=== PATIENT | female | born 1945 | race Caucasian/White ===

== ENCOUNTER → 2023-09-19 07:36 | Outpatient (REF) | payer MEDICARE, SELFPAY ==
[2023-09-19 10:05] LABS: % Basophils 0.5 % (0-2); % Eosinophils 2.8 % (0-6); % Immature Granulocytes 0.4 % (0-0.5); % Lymphocytes 20.2 % (20.5-51.1); % Monocytes 10.7 % (1.7-9.3); % Neutrophils 65.4 % (42.2-75.2); Absolute Eosinophils 0.2 10^3/uL (0-0.7); Absolute Lymphocytes 1.6 10^3/uL (1.2-3.4); Absolute Monocytes 0.8 10^3/uL (0.1-0.6); Absolute Neutrophils 5.1 10^3/uL (1.4-6.5); Hematocrit 44.5 % (37.0-47.0); Hemoglobin 14.6 g/dL (12.0-16.0); Mean Corp Hgb Conc. 32.8 g/dL (33.0-37.0); Mean Corpuscular Hgb 29.3 pg (27.0-31.0); Mean Corpuscular Volume 89.4 fL (81.0-99.0); Mean Platelet Volume 9.7 fL (7.4-10.4); Nucleated Red Blood Cells % 0 %; Platelet Count 297 10^3/uL (130-400); Red Blood Cell Count 4.98 10^6/uL (4.20-5.40); Red Cell Dist. Width 12.9 % (11.5-14.5); White Blood Cell Count 7.9 10^3/uL (4.8-10.8)
[2023-09-19 10:48] LABS: HDL Cholesterol 87 mg/dl; LDL Cholesterol, Calculated 37 mg/dl; Total Cholesterol 152 mg/dl (50-199); Triglyceride 142 mg/dl (10-149); Very Low Density Lipoprotein 28 mg/dl (0-30)
[2023-09-19 11:13] LABS: TSH Reflex To Free T4 2.38 uIU/ml (0.47-4.68)
== END ==
LOC: HWLAB 07:36
PROVIDERS: ATTENDING PHYSICIAN Internal Medicine; FAMILY PHYSICIAN Family Medicine; REFERRING PHYSICIAN Internal Medicine Interventional Cardiology
DX: E78.00 Pure hypercholesterolemia, unspecified (principal); I10 Essential (primary) hypertension
CPT/HCPCS: 36415; 80061; 84443; 85025

== ENCOUNTER → 2023-11-03 07:52 | Outpatient (REF) | payer MEDICARE, SELFPAY | LOC: HWWDC 07:52 | PROVIDERS: ATTENDING PHYSICIAN Internal Medicine | DX: Z12.31 Encounter for screening mammogram for malignant neoplasm of breast (principal) | CPT/HCPCS: 77063; 77067 ==

== ENCOUNTER → 2023-12-30 11:32 | Outpatient (REF) | payer MEDICARE, SELFPAY ==
[2023-12-30 14:01] LABS: Blood Urea Nitrogen 16 mg/dl (7-17); Calcium 9.2 mg/dl (8.4-10.2); Carbon Dioxide 25 mmol/L (22-30); Chloride 110 mmol/L (98-107); Glucose 119 mg/dl (70-99); Potassium 3.7 mmol/L (3.5-5.1); Sodium 142 mmol/L (135-145); eGFR > 60.00
== END ==
LOC: HWRAD 11:32
PROVIDERS: ATTENDING PHYSICIAN Internal Medicine; FAMILY PHYSICIAN Family Medicine; OTHER PHYSICIAN Internal Medicine Critical Care Medicine; REFERRING PHYSICIAN Internal Medicine Interventional Cardiology
DX: I48.0 Paroxysmal atrial fibrillation (principal); I50.30 Unspecified diastolic (congestive) heart failure; R06.09 Other forms of dyspnea
CPT/HCPCS: 36415; 71046; 80048

== ENCOUNTER → 2024-01-08 07:08 | Outpatient (REF) | payer MEDICARE, SELFPAY ==
[2024-01-08 10:20] LABS: % Basophils 0.3 % (0-2); % Eosinophils 2.3 % (0-6); % Immature Granulocytes 0.3 % (0-0.5); % Lymphocytes 20.2 % (20.5-51.1); % Monocytes 10.8 % (1.7-9.3); % Neutrophils 66.1 % (42.2-75.2); Absolute Eosinophils 0.2 10^3/uL (0-0.7); Absolute Lymphocytes 1.3 10^3/uL (1.2-3.4); Absolute Monocytes 0.7 10^3/uL (0.1-0.6); Absolute Neutrophils 4.3 10^3/uL (1.4-6.5); Hematocrit 41.4 % (37.0-47.0); Hemoglobin 13.2 g/dL (12.0-16.0); Mean Corp Hgb Conc. 31.9 g/dL (33.0-37.0); Mean Corpuscular Hgb 28.7 pg (27.0-31.0); Mean Platelet Volume 10.1 fL (7.4-10.4); Nucleated Red Blood Cells % 0 %; Platelet Count 272 10^3/uL (130-400); Red Cell Dist. Width 13.2 % (11.5-14.5); White Blood Cell Count 6.6 10^3/uL (4.8-10.8)
[2024-01-08 10:52] LABS: ALT (SGPT) 18 U/L (0-35); AST (SGOT) 21 U/L (14-36); Albumin 4.1 g/dl (3.5-5.0); Alkaline Phosphatase 113 U/L (38-126); Blood Urea Nitrogen 18 mg/dl (7-17); Calcium 9.5 mg/dl (8.4-10.2); Carbon Dioxide 26 mmol/L (22-30); Chloride 110 mmol/L (98-107); Glucose 94 mg/dl (70-99); HDL Cholesterol 70 mg/dl; LDL Cholesterol, Calculated 43 mg/dl; Potassium 4.1 mmol/L (3.5-5.1); Sodium 142 mmol/L (135-145); Total Bilirubin 0.8 mg/dl (0.2-1.3); Total Cholesterol 134 mg/dl (50-199); Total Protein 7.1 g/dl (6.3-8.2); Triglyceride 107 mg/dl (10-149); Very Low Density Lipoprotein 21 mg/dl (0-30); eGFR > 60.00
== END ==
LOC: HWLAB 07:08
PROVIDERS: ATTENDING PHYSICIAN Family Medicine
DX: I60.9 Nontraumatic subarachnoid hemorrhage, unspecified (principal); C18.1 Malignant neoplasm of appendix; I82.623 Acute embolism and thrombosis of deep veins of upper extremity, bilateral; E78.2 Mixed hyperlipidemia; Z13.1 Encounter for screening for diabetes mellitus
CPT/HCPCS: 36415; 80053; 80061; 85025

== ENCOUNTER → 2024-01-22 11:48 | Outpatient (REF) | payer MEDICARE, SELFPAY | LOC: HWRAD 11:48 | PROVIDERS: ATTENDING PHYSICIAN Obstetrics & Gynecology; FAMILY PHYSICIAN Family Medicine | DX: N81.11 Cystocele, midline (principal); N81.3 Complete uterovaginal prolapse | CPT/HCPCS: 76830; 76856 ==

== ENCOUNTER → 2024-03-08 18:14 | Outpatient (REF) | payer MEDICARE, SELFPAY | LOC: RAD 18:14 | PROVIDERS: ATTENDING PHYSICIAN Nurse Practitioner Adult Health | DX: M54.2 Cervicalgia (principal) | CPT/HCPCS: 72040 ==

== ENCOUNTER 2024-03-22 06:29 | Day surgery (SDC) | payer MEDICARE, SELFPAY ==
[2024-03-22] VITALS (13 sets, daily range): BP systolic 106–134; BP diastolic 48–71; BMI 31.4
[2024-03-22] MEDS: HEPARIN 5000 UNITS SC (13:35)
[2024-03-22] MEDS: Pyridium 200 MG PO (13:35)
[2024-03-22] MEDS: NORMOSOL-R 1000 IV ×2 (13:35→18:10)
[2024-03-22] MEDS: TORADOL 15 MG IV (18:11)
--- NOTE | 2024-03-22 18:45 | PTCARENOTE ---
Received pt at change of shift post op Leforte colporrophy, posterior colporrophy, perineoplasty, cytoscopy, single incision sling. Pt with cantu, vaginal packing and quirino pad. Quirino pad with moderate old drainage. Pt lying comfortably and denying
pain. Call martinez within reach, bed in lowest position, and pt oriented to room. Assessment ongoing.
[2024-03-22] MEDS: COREG 3.125 MG PO (19:55)
[2024-03-22] MEDS: PEPCID 20 MG PO (19:55)
[2024-03-22] MEDS: LOVENOX 40 MG SC (19:56)
[2024-03-23 00:12] VITALS: BP 113/62
[2024-03-23] MEDS: TORADOL 15 MG IV ×3 (00:43→11:51)
[2024-03-23] MEDS: NORMOSOL-R 1000 IV (01:09)
[2024-03-23 03:21] VITALS: BP 126/59
--- NOTE | 2024-03-23 05:30 | PTCARENOTE ---
D/c'd Wilder catheter. Vaginal packing remains in place. Moderate drainage on quirino pad noted. Pt given time and amount.
[2024-03-23 07:00] VITALS: BP 128/62
--- NOTE | 2024-03-23 07:48 | W.PN.GYN ---
Today's Communication / Plan
-
1. d/c home today
2. voiding trial pending
Physician Note
-
Assessment and Plan:
78 yo POD 1 s/p Lefort colpocleisis, posterior colporrhaphy with perineoplasty, cystoscopy, single incision sling: patient doing well and meeting postoperative milestones.
1. Postoperative care:
-hep lock iv
-cbc: pending
-bmp: pending
-regular diet
-voiding trial: pending
-uop: adequate
-packing removed
-dvt ppx: lovenox, scds, ambulation
2. Dispo
-d/c home
Subjective:
no acute pain. tolerating regular diet. minimal vaginal bleeding. cantu catheter removed.
Objective:
Intake and Output
03/21/24 03/22/24 03/23/24 03/24/24
06:59 06:59 06:59 06:59
Intake Total 1940 / 1940
Output Total 1500 / 1500
Balance 440 / 440
Intake:
Oral fluids 240 / 240
IV fluids (Total) 1700 / 1700
Normosol 200 / 200
Output:
Urine, Cantu 1500 / 1500
Vital Signs
Temp Pulse Resp BP Pulse Ox
97.6 F 68 18 128/62 96
03/23/24 03:21 03/23/24 07:00 03/23/24 07:00 03/23/24 07:00 03/23/24 07:00
Exam:
Abdomen: soft, nontender, nondistended
: minimal spotting
[2024-03-23] MEDS: LIPITOR 10 MG PO (07:50)
[2024-03-23] MEDS: COREG 3.125 MG PO (07:52)
[2024-03-23] MEDS: ZETIA 10 MG PO (07:52)
[2024-03-23] MEDS: PEPCID 20 MG PO (07:52)
[2024-03-23] MEDS: NORVASC 5 MG PO (07:52)
[2024-03-23 08:21] LABS: Hematocrit 36.4 % (37.0-47.0); Hemoglobin 12.4 g/dL (12.0-16.0); Mean Corp Hgb Conc. 34.1 g/dL (33.0-37.0); Mean Corpuscular Hgb 29.3 pg (27.0-31.0); Mean Corpuscular Volume 86.1 fL (81.0-99.0); Mean Platelet Volume 9.9 fL (7.4-10.4); Platelet Count 214 10^3/uL (130-400); Red Blood Cell Count 4.23 10^6/uL (4.20-5.40); Red Cell Dist. Width 13.1 % (11.5-14.5); White Blood Cell Count 6.6 10^3/uL (4.8-10.8)
[2024-03-23 08:50] LABS: Blood Urea Nitrogen 17 mg/dl (7-17); Carbon Dioxide 22 mmol/L (22-30); Chloride 107 mmol/L (98-107); Estimated Creatinine Clearance 60 ml/min; Potassium 4.1 mmol/L (3.5-5.1); Sodium 137 mmol/L (135-145)
--- NOTE | 2024-03-23 10:54 | CM ---
Initial assessment completed with patient who lives alone at [facility] in a 1st floor apartment with no steps to enter. Patient has a RW in the home but does not use and has a SPC that she uses occasionally. 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
drove. No history of psychiatric hospitalizations. [place] has a wellness center and a nurse will check on patient day of discharge and thereafter as needed. [facility] is [facility] in [place] and PCP is Dr. Mcdermott. Plan
for discharge to home with no additional needs. Daughter will transport home and remain with patient.
[2024-03-23 11:00] VITALS: BP 118/55
--- NOTE | 2024-03-23 11:02 | CM ---
Patient has been medically cleared for discharge to home with no additional skilled services. Daughter will transport home.
[2024-03-23] MEDS: NORMOSOL-R IV (11:51)
== END 2024-03-23 13:10 | disposition home or self-care (01) ==
LOC: SDS 06:29
PROVIDERS: ATTENDING PHYSICIAN Obstetrics & Gynecology
DX: N81.3 Complete uterovaginal prolapse (principal); N39.3 Stress incontinence (female) (male); N95.2 Postmenopausal atrophic vaginitis
CPT/HCPCS: 57288; 57120; 57250; 80051; 82565; 84520; 85027; 86850; 86900; 86901; C1771; J1580

== ENCOUNTER → 2024-04-07 17:27 | Outpatient (REF) | payer MEDICARE, SELFPAY | LOC: CLAB 17:27 | PROVIDERS: ATTENDING PHYSICIAN Physician Assistant | DX: Z09 Encounter for follow-up examination after completed treatment for conditions other than malignant neoplasm (principal); N39.0 Urinary tract infection, site not specified | CPT/HCPCS: 87086 ==

== ENCOUNTER → 2024-06-02 10:09 | Outpatient (REF) | payer MEDICARE, SELFPAY ==
[2024-06-02 12:26] LABS: % Basophils 0.2 % (0-2); % Immature Granulocytes 0.4 % (0-0.5); % Lymphocytes 16.7 % (20.5-51.1); % Monocytes 9.1 % (1.7-9.3); % Neutrophils 72.6 % (42.2-75.2); Absolute Eosinophils 0.1 10^3/uL (0-0.7); Absolute Lymphocytes 1.4 10^3/uL (1.2-3.4); Absolute Monocytes 0.7 10^3/uL (0.1-0.6); Absolute Neutrophils 5.9 10^3/uL (1.4-6.5); Hematocrit 40.6 % (37.0-47.0); Hemoglobin 13.4 g/dL (12.0-16.0); Mean Corpuscular Hgb 29.4 pg (27.0-31.0); Mean Platelet Volume 9.6 fL (7.4-10.4); Nucleated Red Blood Cells % 0 %; Platelet Count 232 10^3/uL (130-400); Red Blood Cell Count 4.56 10^6/uL (4.20-5.40); Red Cell Dist. Width 13.4 % (11.5-14.5); White Blood Cell Count 8.2 10^3/uL (4.8-10.8)
[2024-06-02 13:01] LABS: ALT (SGPT) 20 U/L (0-35); AST (SGOT) 21 U/L (14-36); Albumin 4.4 g/dl (3.5-5.0); Alkaline Phosphatase 108 U/L (38-126); Blood Urea Nitrogen 19 mg/dl (7-17); Calcium 9.5 mg/dl (8.4-10.2); Carbon Dioxide 27 mmol/L (22-30); Chloride 106 mmol/L (98-107); Glucose 95 mg/dl (70-99); HDL Cholesterol 90 mg/dl; LDL Cholesterol, Calculated 49 mg/dl; Potassium 3.8 mmol/L (3.5-5.1); Sodium 144 mmol/L (135-145); Total Bilirubin 0.8 mg/dl (0.2-1.3); Total Cholesterol 165 mg/dl (50-199); Total Protein 7.3 g/dl (6.3-8.2); Triglyceride 134 mg/dl (10-149); Very Low Density Lipoprotein 26 mg/dl (0-30); eGFR > 60.00
[2024-06-02 13:11] LABS: Urine Albumin Trace (Neg - Trace); Urine Bilirubin Negative (Negative); Urine Character Slightly Cloudy (Clear); Urine Color Yellow; Urine Glucose Negative (Negative); Urine Ketone Negative (Negative); Urine Leukocyte 2+ (Negative); Urine Nitrite Positive (Negative); Urine Occult Blood 3+ (Negative); Urine Urobilinogen Negative (Neg - 1+)
[2024-06-02 13:38] LABS: Urine Squamous Cell >30 /LPF (Few)
[2024-06-02 13:40] LABS: Urine Bacteria Many (Negative); Urine White Cell >100 /HPF (0-5)
== END ==
LOC: HWLAB 10:09
PROVIDERS: ATTENDING PHYSICIAN Obstetrics & Gynecology; FAMILY PHYSICIAN Family Medicine; REFERRING PHYSICIAN Internal Medicine Interventional Cardiology
DX: N39.0 Urinary tract infection, site not specified (principal); Z00.00 Encounter for general adult medical examination without abnormal findings; I48.0 Paroxysmal atrial fibrillation; J43.2 Centrilobular emphysema; E55.9 Vitamin D deficiency, unspecified; E34.9 Endocrine disorder, unspecified; E78.2 Mixed hyperlipidemia; Z79.899 Other long term (current) drug therapy
CPT/HCPCS: 36415; 80053; 80061; 81003; 81015; 85025; 87077; 87086; 87186

== ENCOUNTER → 2024-07-27 14:38 | Outpatient (REF) | payer MEDICARE, SELFPAY | LOC: HWRCS 14:38 | PROVIDERS: ATTENDING PHYSICIAN Internal Medicine Interventional Cardiology; FAMILY PHYSICIAN Family Medicine | DX: I50.30 Unspecified diastolic (congestive) heart failure (principal); R06.09 Other forms of dyspnea | CPT/HCPCS: 93306 ==

== ENCOUNTER → 2024-08-02 11:30 | Outpatient (REF) | payer MEDICARE, SELFPAY ==
[2024-08-02 16:32] LABS: Urine Albumin 1+ (Neg - Trace); Urine Bilirubin Negative (Negative); Urine Character Slightly Cloudy (Clear); Urine Color Yellow; Urine Glucose Negative (Negative); Urine Ketone Negative (Negative); Urine Leukocyte 2+ (Negative); Urine Nitrite Positive (Negative); Urine Occult Blood 2+ (Negative); Urine Urobilinogen Negative (Neg - 1+)
[2024-08-02 17:01] LABS: Urine Bacteria Many (Negative); Urine Squamous Cell 0-2 /LPF (Few); Urine White Cell >100 /HPF (0-5)
== END ==
LOC: HWLAB 11:30
PROVIDERS: ATTENDING PHYSICIAN Obstetrics & Gynecology; FAMILY PHYSICIAN Family Medicine
DX: N39.0 Urinary tract infection, site not specified (principal)
CPT/HCPCS: 36415; 81003; 81015; 87077; 87086; 87186

== ENCOUNTER → 2024-08-26 08:41 | Outpatient (REF) | payer MEDICARE, SELFPAY ==
[2024-08-26 12:40] LABS: % Basophils 0.3 % (0-2); % Eosinophils 1.7 % (0-6); % Immature Granulocytes 0.3 % (0-0.5); % Lymphocytes 17.4 % (20.5-51.1); % Monocytes 10.9 % (1.7-9.3); % Neutrophils 69.4 % (42.2-75.2); Absolute Eosinophils 0.1 10^3/uL (0-0.7); Absolute Lymphocytes 1.4 10^3/uL (1.2-3.4); Absolute Monocytes 0.9 10^3/uL (0.1-0.6); Absolute Neutrophils 5.5 10^3/uL (1.4-6.5); Hematocrit 46.9 % (37.0-47.0); Hemoglobin 14.8 g/dL (12.0-16.0); Mean Corp Hgb Conc. 31.6 g/dL (33.0-37.0); Mean Corpuscular Hgb 28.8 pg (27.0-31.0); Mean Corpuscular Volume 91.2 fL (81.0-99.0); Mean Platelet Volume 10.1 fL (7.4-10.4); Nucleated Red Blood Cells % 0 %; Platelet Count 262 10^3/uL (130-400); Red Blood Cell Count 5.14 10^6/uL (4.20-5.40); Red Cell Dist. Width 12.7 % (11.5-14.5); White Blood Cell Count 7.8 10^3/uL (4.8-10.8)
[2024-08-26 12:44] LABS: ALT (SGPT) 19 U/L (0-35); AST (SGOT) 22 U/L (14-36); Albumin 4.1 g/dl (3.5-5.0); Alkaline Phosphatase 107 U/L (38-126); Blood Urea Nitrogen 14 mg/dl (7-17); Calcium 9.3 mg/dl (8.4-10.2); Carbon Dioxide 28 mmol/L (22-30); Chloride 106 mmol/L (98-107); Glucose 106 mg/dl (70-99); HDL Cholesterol 72 mg/dl; LDL Cholesterol, Calculated 35 mg/dl; Potassium 3.7 mmol/L (3.5-5.1); Sodium 142 mmol/L (135-145); Total Bilirubin 0.9 mg/dl (0.2-1.3); Total Cholesterol 139 mg/dl (50-199); Triglyceride 164 mg/dl (10-149); Very Low Density Lipoprotein 32 mg/dl (0-30); eGFR > 60.00
[2024-08-26 14:26] LABS: TSH Reflex To Free T4 2.46 uIU/ml (0.47-4.68)
== END ==
LOC: HWLAB 08:41
PROVIDERS: ATTENDING PHYSICIAN Family Medicine; REFERRING PHYSICIAN Internal Medicine Interventional Cardiology
DX: I60.9 Nontraumatic subarachnoid hemorrhage, unspecified (principal); C18.1 Malignant neoplasm of appendix; I82.623 Acute embolism and thrombosis of deep veins of upper extremity, bilateral; E78.2 Mixed hyperlipidemia; Z13.1 Encounter for screening for diabetes mellitus; Z13.29 Encounter for screening for other suspected endocrine disorder
CPT/HCPCS: 36415; 80053; 80061; 84443; 85025

== ENCOUNTER → 2024-10-11 08:58 | Outpatient (REF) | payer MEDICARE, SELFPAY | LOC: HWWDC 08:58 | PROVIDERS: ATTENDING PHYSICIAN Family Medicine | DX: Z12.31 Encounter for screening mammogram for malignant neoplasm of breast (principal) | CPT/HCPCS: 77063; 77067 ==

== ENCOUNTER → 2024-11-03 16:29 | Outpatient (REF) | payer MEDICARE, SELFPAY ==
[2024-11-03 17:16] LABS: Urine Albumin 1+ (Neg - Trace); Urine Bilirubin Negative (Negative); Urine Character Clear (Clear); Urine Color Yellow; Urine Glucose Negative (Negative); Urine Ketone Negative (Negative); Urine Leukocyte Negative (Negative); Urine Nitrite Negative (Negative); Urine Occult Blood 1+ (Negative); Urine Urobilinogen Negative (Neg - 1+)
[2024-11-03 17:42] LABS: Urine Bacteria Few (Negative); Urine Red Blood Cell 0-2 /HPF (0-2); Urine Squamous Cell 0-2 /LPF (Few); Urine Uric Acid Crystals Present; Urine White Cell 0-2 /HPF (0-5)
== END ==
LOC: CLAB 16:29
PROVIDERS: ATTENDING PHYSICIAN Physician Assistant
DX: R31.29 Other microscopic hematuria (principal)
CPT/HCPCS: 81003; 81015

== ENCOUNTER → 2024-12-10 11:56 | Outpatient (REF) | payer MEDICARE, SELFPAY | LOC: HWRAD 11:56 | PROVIDERS: ATTENDING PHYSICIAN Family Medicine | DX: S60.212D Contusion of left wrist, subsequent encounter (principal) | CPT/HCPCS: 73110; 73130 ==

== ENCOUNTER → 2024-12-27 09:01 | Outpatient (REF) | payer MEDICARE, SELFPAY ==
[2024-12-27 12:07] LABS: % Basophils 0.4 % (0-2); % Eosinophils 1.8 % (0-6); % Immature Granulocytes 0.2 % (0-0.5); % Monocytes 10.1 % (1.7-9.3); % Neutrophils 66.5 % (42.2-75.2); Absolute Eosinophils 0.1 10^3/uL (0-0.7); Absolute Lymphocytes 1.2 10^3/uL (1.2-3.4); Absolute Monocytes 0.6 10^3/uL (0.1-0.6); Absolute Neutrophils 3.7 10^3/uL (1.4-6.5); Hematocrit 41.9 % (37.0-47.0); Hemoglobin 13.7 g/dL (12.0-16.0); Mean Corp Hgb Conc. 32.7 g/dL (33.0-37.0); Mean Corpuscular Hgb 29.4 pg (27.0-31.0); Mean Corpuscular Volume 89.9 fL (81.0-99.0); Nucleated Red Blood Cells % 0 %; Platelet Count 272 10^3/uL (130-400); Red Blood Cell Count 4.66 10^6/uL (4.20-5.40); Red Cell Dist. Width 13.1 % (11.5-14.5); White Blood Cell Count 5.5 10^3/uL (4.8-10.8)
[2024-12-27 12:47] LABS: ALT (SGPT) 15 U/L (0-35); AST (SGOT) 18 U/L (14-36); Albumin 4.3 g/dl (3.5-5.0); Alkaline Phosphatase 85 U/L (38-126); Blood Urea Nitrogen 16 mg/dl (7-17); Calcium 9.4 mg/dl (8.4-10.2); Carbon Dioxide 25 mmol/L (22-30); Chloride 112 mmol/L (98-107); Glucose 98 mg/dl (70-99); HDL Cholesterol 73 mg/dl; LDL Cholesterol, Calculated 38 mg/dl; Sodium 144 mmol/L (135-145); Total Bilirubin 0.9 mg/dl (0.2-1.3); Total Cholesterol 136 mg/dl (50-199); Total Protein 7.3 g/dl (6.3-8.2); Triglyceride 127 mg/dl (10-149); Very Low Density Lipoprotein 25 mg/dl (0-30); eGFR > 60.00
[2024-12-27 19:38] LABS: CEA 1.71 ng/ml; TSH Reflex To Free T4 2.17 uIU/ml (0.47-4.68)
== END ==
LOC: HWLAB 09:01
PROVIDERS: ATTENDING PHYSICIAN Internal Medicine; FAMILY PHYSICIAN Family Medicine
DX: I60.9 Nontraumatic subarachnoid hemorrhage, unspecified (principal); C18.1 Malignant neoplasm of appendix; I82.623 Acute embolism and thrombosis of deep veins of upper extremity, bilateral; E78.2 Mixed hyperlipidemia; Z13.1 Encounter for screening for diabetes mellitus; Z13.29 Encounter for screening for other suspected endocrine disorder
CPT/HCPCS: 36415; 80053; 80061; 82378; 84443; 85025

== ENCOUNTER → 2025-05-03 14:51 | Outpatient (REF) | payer MEDICARE, SELFPAY ==
[2025-05-03 17:11] LABS: Urine Character Clear (Clear)
[2025-05-03 17:22] LABS: Urine Red Blood Cell 50-60 /HPF (0-2); Urine White Cell 70-80 /HPF (0-5)
== END ==
LOC: REG 14:51
PROVIDERS: ATTENDING PHYSICIAN Obstetrics & Gynecology; FAMILY PHYSICIAN Family Medicine
DX: N39.0 Urinary tract infection, site not specified (principal)
CPT/HCPCS: 81003; 81015; 87086; 87088; 87186

== ENCOUNTER → 2025-06-27 07:44 | Outpatient (REF) | payer MEDICARE, SELFPAY ==
[2025-06-27 10:23] LABS: Hematocrit 44.9 % (37.0-47.0); Hemoglobin 14.4 g/dL (12.0-16.0); Mean Corp Hgb Conc. 32.1 g/dL (33.0-37.0); Mean Corpuscular Volume 93.2 fL (81.0-99.0); Nucleated Red Blood Cells % 0 %; Platelet Count 228 10^3/uL (130-400); Red Cell Dist. Width 12.9 % (11.5-14.5)
[2025-06-27 11:11] LABS: ALT (SGPT) 19 U/L (0-35); AST (SGOT) 22 U/L (14-36); Albumin 4.3 g/dl (3.5-5.0); Alkaline Phosphatase 75 U/L (38-126); Blood Urea Nitrogen 15 mg/dl (7-17); Calcium 9.1 mg/dl (8.4-10.2); Carbon Dioxide 28 mmol/L (22-30); Chloride 108 mmol/L (98-107); Glucose 94 mg/dl (70-99); HDL Cholesterol 65 mg/dl; LDL Cholesterol, Calculated 55 mg/dl; Potassium 3.8 mmol/L (3.5-5.1); Sodium 140 mmol/L (135-145); Total Protein 7.4 g/dl (6.3-8.2); Very Low Density Lipoprotein 27 mg/dl (0-30); eGFR > 60.00
[2025-06-27 11:28] LABS: Vitamin D, 25-OH*** 41.0 ng/mL (30-80)
== END ==
LOC: HWLAB 07:44
PROVIDERS: ATTENDING PHYSICIAN Family Medicine
DX: E55.9 Vitamin D deficiency, unspecified (principal); R53.83 Other fatigue; Z13.1 Encounter for screening for diabetes mellitus; E78.2 Mixed hyperlipidemia
CPT/HCPCS: 36415; 80053; 80061; 82306; 85025

== ENCOUNTER → 2025-07-21 08:23 | Outpatient (REF) | payer MEDICARE, SELFPAY ==
[2025-07-21 09:32] LABS: Urine Character Clear (Clear)
[2025-07-21 09:36] LABS: Urine Red Blood Cell None Seen /HPF (0-2); Urine Squamous Cell 16-20 /LPF (Few); Urine White Cell 16-20 /HPF (0-5)
== END ==
LOC: REG 08:23
PROVIDERS: ATTENDING PHYSICIAN Physician Assistant
DX: N39.0 Urinary tract infection, site not specified (principal)
CPT/HCPCS: 36415; 81003; 81015; 87086